=== PATIENT | female | born 1965 | race Caucasian/White ===

== ENCOUNTER 2017-08-02 20:25 | Emergency (ER) | payer SELFPAY ==
--- NOTE | 2017-08-02 20:47 | PDOC ---
Rapid Medical Evaluation Time Seen by Provider: 08/02/17 20:45 Medical Evaluation: 08/02/17 20:45 I have performed a brief in-person evaluation of this patient. The patient presents with a chief complaint of: hematuria since this morning, R sided flank pain, denies vaginal bleeding, denies f/c/n/v/d, LMP last month Pertinent physical exam findings: no CVA tenderness I have ordered the following: UA, UCx, upreg The patient will proceed to the ED for further evaluation. Discharge Disposition - Diagnosis Hematuria - Referrals - Patient Instructions - Post Discharge Activity
[2017-08-02 20:48] VITALS: BP 144/84; PULSE 82; TEMP 98.3; BMI 23.6
--- NOTE | 2017-08-02 20:56 | PDOC ---
History of Present Illness - General Chief Complaint: Urinary Problem Stated Complaint: PAIN Time Seen by Provider: 08/02/17 20:45 History Source: Patient - History of Present Illness Timing/Duration: reports: other (this am) Past History - Past Medical History Allergies/Adverse Reactions: Allergies Allergy/AdvReac Type Severity Reaction Status Date / Time No Known Allergies Allergy Verified 08/02/17 20:48 Home Medications: Ambulatory Orders Nitrofurantoin Monohyd/M-Cryst [Macrobid -] 100 mg PO BID #14 capsule 08/02/17 - Suicide/Smoking/Psychosocial Hx Smoking History: Never smoked Have you smoked in the past 12 months: No Information on smoking cessation initiated: No Hx Alcohol Use: No Drug/Substance Use Hx: No Review of Systems - Review of Systems Constitutional: No: Chills, Fever, Unexplained wgt Loss ABD/GI: No: Nausea, Vomiting, Abdominal cramping : Yes: Hematuria. No: Burning, Dysuria, Discharge, Frequency, Flank Pain Musculoskeletal: No: Back Pain *Physical Exam - Vital Signs Last Vital Signs Temp Pulse Resp BP Pulse Ox 98.3 F 82 16 144/84 100 08/02/17 20:46 08/02/17 20:46 08/02/17 20:46 08/02/17 20:46 08/02/17 20:46 - Physical Exam General Appearance: Yes: Appropriately Dressed. No: Apparent Distress HEENT: positive: Normal Voice Neck: positive: Supple Respiratory/Chest: negative: Respiratory Distress Gastrointestinal/Abdominal: positive: Soft. negative: Tender Musculoskeletal: negative: CVA Tenderness Integumentary: positive: Dry, Warm Neurologic: positive: Fully Oriented, Alert, Normal Mood/Affect Medical Decision Making - Medical Decision Making 08/02/17 21:34 52-year-old female, no significant history, here with sudden onset hematuria w/ possible dysuria this a.m. Patient states she's had multiple episodes of blood in her urine since this morning. No frequency, flank pain, nausea, vomiting, fever or chills. No history of kidney stones. No history of similar episode and not on blood thinners. No unexplained weight loss. No tob hx See exam Hematuria w/ ?dysuria Stable and well eula w/ unremarkable exam No flank pain/n/v to suggest stone, pyelo, no tob use -ua/cx pening 08/02/17 22:27 Bld, prot and 32 wbc on ua, ucx sent. No flank pain, nausea or vomiting, so vwill not scan at this time. Will treat for possible infection, but given significant gross hematuria without a slam dunk UTI on UA, will refer to PMD for further evaluation. Reasons to return discussed with patient *DC/Admit/Observation/Transfer Diagnosis at time of Disposition: Hematuria Qualifiers: Hematuria type: gross Qualified Code(s): R31.0 - Gross hematuria - Discharge Dispostion Disposition: HOME Condition at time of disposition: Good - Prescriptions Prescriptions: Nitrofurantoin Monohyd/M-Cryst [Macrobid -] 100 mg PO BID #14 capsule - Referrals Referrals: ON STAFF,NOT [Primary Care Provider] - - Patient Instructions Printed Discharge Instructions: DI for Hematuria Additional Instructions: You were treated for possible UTI. Take medications as prescribed. If you develop side pain, nausea, vomiting, fever or chills, return to ER immediately. You will need to follow-up with your PMD next week - Post Discharge Activity
[2017-08-02 21:36] LABS: URINE APPEARANCE CLOUDY; URINE BILIRUBIN NEGATIVE (<2.0 mg/dL); URINE BLOOD 3+ (NEGATIVE); URINE COLOR YELLOW; URINE GLUCOSE (UA) NEGATIVE (NEGATIVE); URINE KETONE NEGATIVE (NEGATIVE); URINE LEUK ESTERASE NEGATIVE (NEGATIVE); URINE NITRITE NEGATIVE (NEGATIVE); URINE UROBILINOGEN NEGATIVE mg/dL (0.2-1.0)
[2017-08-02 22:12] LABS: URINE PROTEIN 2+ (NEGATIVE)
[2017-08-02 22:15] LABS: URINE MUCUS RARE
== END 2017-08-02 22:30 | disposition home or self-care (01) ==
LOC: JERFT 20:25
DX: R31.0 Gross hematuria (principal)
CPT/HCPCS: 81003; 81015; 84703; 87086; 99281-25

== ENCOUNTER 2018-02-17 16:03 | Emergency (ER) | payer OTHER ==
--- NOTE | 2018-02-17 16:22 | PDOC ---
History of Present Illness - General Stated Complaint: VOMITING/NAUSEA Time Seen by Provider: 02/17/18 16:21 - History of Present Illness Initial Comments: 53yo F with no significant pmh presenting with 01/31 headache that started last night. Patient reports that started maximal on onset, keeping her from sleeping. She also reports nausea and has had about 20 episodes of NBNB vomiting. Patient endorses abdominal pain that started after vomiting. She has had poor po intake and has been feeling weak. This headache is more severe than those she has had in the past. Denies focal neurologic deficits, weakness on one side of the body, numbness, or heart palpitations. No fever, chills, chest pain, or shortness of breath. Past History - Past Medical History Allergies/Adverse Reactions: Allergies Allergy/AdvReac Type Severity Reaction Status Date / Time No Known Allergies Allergy Verified 02/17/18 16:21 Home Medications: Ambulatory Orders Nitrofurantoin Monohyd/M-Cryst [Macrobid -] 100 mg PO BID #14 capsule 08/02/17 Acetaminophen/Caffeine/Butalb [Fioricet -] 1 tab PO Q4H #7 tablet MDD 5 Butalb/Acetaminophen/Caffeine [Fioricet 50-300-40 mg Capsule] 1 each PO Q4H PRN #7 capsule 02/17/18 - Suicide/Smoking/Psychosocial Hx Smoking History: Never smoked Have you smoked in the past 12 months: No Hx Alcohol Use: No Drug/Substance Use Hx: No Review of Systems - Review of Systems Comments:: Constitutional: no fever, no chills HEENT: no throat pain, no dysphagia Cardiovascular: no chest pain, no palpitations Respiratory: no cough, no shortness of breath Gastrointestinal: +abdominal pain, +nausea, +vomiting, no diarrhea, no constipation Genitourinary: no dysuria, no frequency Musculoskeletal: no myalgia, no arthralgia Skin: no rash, no itching Neurologic: +headache, no dizziness *Physical Exam - Physical Exam Comments: General: Awake, alert, and fully oriented, in no acute distress Head: no signs of trauma Eyes: EOMI, sclera anicteric ENT: Moist mucus membranes Neck: Normal ROM, supple Lungs: Lungs clear, Normal breath sounds Cardio: Regular rhythm, S1 and S2 present Abdomen: Tender to palpation diffusely, most focal to epigastrium. Soft, non- distended. No guarding, no rebound, no masses Extremities: Normal range of motion, Distal pulses present SKIN: Warm, Dry, normal turgor Neurologic: Cranial nerves II through XII grossly intact. Normal speech, sensation, strength, coordination, and gait. ED Treatment Course - LABORATORY CBC & Chemistry Diagram: 02/17/18 17:15 02/17/18 17:15 Medical Decision Making - Medical Decision Making 53yo F with no significant pmh presenting with 01/31 headache that started last night. -DDX includes but not limited to migraine, SAH, CVA, brain bleed, brain mass -CT head negative for acute pathology -Labs: no leukocytosis or anemia, UA/UPreg negative -Reglan: patient reports alleviation of headache, now 08/01 -Discharged with return precautions. Patient amenable to plan 02/17/18 18:37 *DC/Admit/Observation/Transfer Diagnosis at time of Disposition: Headache - Discharge Dispostion Disposition: HOME Condition at time of disposition: Improved - Prescriptions Prescriptions: Acetaminophen/Caffeine/Butalb [Fioricet -] 1 tab PO Q4H #7 tablet MDD 5 Butalb/Acetaminophen/Caffeine [Fioricet 50-300-40 mg Capsule] 1 each PO Q4H PRN #7 capsule PRN Reason: Headache - Referrals Referrals: Killian Nelson [Primary Care Provider] - - Patient Instructions Printed Discharge Instructions: DI for Headache Additional Instructions: You came to the ED for a headache. CT imaging of your head did not show acute pathology. Prescription sent to your pharmacy. Take 1-2 tablets every 4 hours as needed for headache. You can also take [id number] excedrin, tylenol, or motrin for your headache. Follow the instructions on the medication bottle. Follow-up with you primary care physician in 5-7 days to discuss this ED visit and to further evaluate your headache. Your care is not complete until you do so. Call and make an appointment. Medical attention is required if: you experience persistent symptoms, severe headache, have a seizure, or have focal numbness or weakness. If you think you are having an emergency, call for emergency medical services or present to the emergency department right away Print Language: TELUGU - Post Discharge Activity
[2018-02-17 16:28] VITALS: BMI 20.9
--- NOTE | 2018-02-17 17:05 | PDOC ---
Attending Attestation - Resident Resident Name: MariiaDahlia - ED Attending Attestation I have performed the following: I have examined & evaluated the patient, The case was reviewed & discussed with the resident, I agree w/resident's findings & plan, Exceptions are as noted - HPI HPI: 02/17/18 17:34 Ms Helms is a 53 yo F who is otherwise healthy She presents to the ER with a complaint of headache She was at a family reunion yesterday and went to sleep at about 10 pm Some time after this, she noted a diffuse headache which was severe Pt has some difficulty clearly explaining to me what the onset of the headache was like She described to her son (who is bedside) a gradual onset of a headache No neck pain No fevers She has not been able to get comfortable, she could not sleep all night last night She has been vomiting repeatedly She continues to be nauseous She also now has abdominal pain No prior episodes like this - Physicial Exam PE: 02/17/18 17:36 GENERAL: The patient is in no acute distress, she is weak appearing. HEAD: Normal with no signs of trauma. EYES: PERRLA, EOMI, sclera anicteric, conjunctiva clear, photophobia. ENT: Ears normal, nares patent, oropharynx clear without exudates. Moist mucous membranes. NECK: Normal range of motion, supple without nuchal rigidity LUNGS: Breath sounds equal, clear to auscultation bilaterally. HEART:Regular rate and rhythm, normal S1 and S2 without murmur, rub or gallop. ABDOMEN: Soft, diffusely tender to palpation EXTREMITIES: Normal range of motion NEUROLOGICAL: Cranial nerves II through XII grossly intact. Normal speech. No focal neurological deficits. MUSCULOSKELETAL: Back non-tender to palpation, no CVA tenderness SKIN: Warm, Dry, normal turgor, no rashes or lesions noted. - Medical Decision Making 02/17/18 17:37 Pt presents to the ER with a complaint of severe headache: Unlikely meningitis given no fever, no changes in mental status Possibly tension headache Possibly migraine Possibly SAH Will do: Labs CT IV Tylenol, Reglan, Benadryl Will re assess Pt may require LP
[2018-02-17] MEDS ORDERED: METOCLOPRAMIDE HCL INJECTION 10 MG/2 ML VIAL IVPUSH ONE (17:14)
[2018-02-17] MEDS ORDERED: SODIUM CHLORIDE 1,000 ML IV STA (17:14)
[2018-02-17] MEDS ORDERED: METOCLOPRAMIDE HCL INJECTION 10 MG/2 ML VIAL ONE (17:24)
[2018-02-17 17:28] LABS: URINE APPEARANCE CLOUDY; URINE BILIRUBIN NEGATIVE (<2.0 mg/dL); URINE COLOR YELLOW; URINE GLUCOSE (UA) NEGATIVE (NEGATIVE); URINE KETONE NEGATIVE (NEGATIVE); URINE LEUK ESTERASE NEGATIVE (NEGATIVE); URINE NITRITE NEGATIVE (NEGATIVE); URINE PROTEIN NEGATIVE (NEGATIVE); URINE UROBILINOGEN NEGATIVE mg/dL (0.2-1.0)
[2018-02-17 17:30] LABS: HCG,QUALITATIVE URINE Negative
[2018-02-17] MEDS ORDERED: ACETAMINOPHEN 1000 MG/100 ML VIAL (NON FORMULARY) IVPB ONE (17:33)
[2018-02-17 17:59] LABS: BASO % 0.6 % (0-2.0); HEMATOCRIT 39.3 % (32.4-45.2); HEMOGLOBIN 12.5 GM/dL (10.7-15.3); LYMPH % 7.5 % (8-40); MCH 25.2 pg (25.7-33.7); MCHC 31.7 g/dl (32.0-36.0); MEAN CELL VOLUME 79.5 fl (80-96); MEAN PLT VOLUME 8.7 fl (7.5-11.1); MONO % 1.7 % (3.8-10.2); NEUT % 90.2 % (42.8-82.8); PLATELET COUNT 182 K/MM3 (134-434); RBC 4.94 M/mm3 (3.60-5.2); RDW 15.4 % (11.6-15.6); WHITE BLOOD COUNT 9.9 K/mm3 (4.0-10.0)
[2018-02-17 18:18] LABS: ALBUMIN 3.6 g/dl (3.4-5.0); ALK PHOS 97 U/L (45-117); ANION GAP 8 MMOL/L (8-16); BILIRUBIN,TOTAL 0.6 mg/dL (0.2-1); BLOOD UREA NITROGEN 8 mg/dL (7-18); CALCIUM 8.8 mg/dL (8.5-10.1); CHLORIDE 110 mmol/L (98-107); CO2 25 mmol/L (21-32); CREATININE 0.6 mg/dL (0.55-1.3); GLUCOSE,RANDOM 97 mg/dL (74-106); POTASSIUM 3.9 mmol/L (3.5-5.1); SGOT/AST 20 U/L (15-37); SGPT/ALT 21 U/L (13-61); SODIUM 143 mmol/L (136-145); TOT PROT 7.4 g/dl (6.4-8.2)
[2018-02-17] MEDS ORDERED: ACETAMINOPHEN INJECTION 100 ML IVPB ONE (18:22)
[2018-02-17 18:47] VITALS: BP 118/74; PULSE 96; TEMP 99.1
== END 2018-02-17 21:10 | disposition home or self-care (01) ==
LOC: SUPCPDRO 16:03 → JER 16:03
PROC: 3E0337Z Introduction of Electrolytic and Water Balance Substance into Peripheral Vein, Percutaneous Approach (ICD-10-PCS; principal; 2018-02-17)
PROC: 3E033NZ Introduction of Analgesics, Hypnotics, Sedatives into Peripheral Vein, Percutaneous Approach (ICD-10-PCS; 2018-02-17)
PROC: 3E033GC Introduction of Other Therapeutic Substance into Peripheral Vein, Percutaneous Approach (ICD-10-PCS; 2018-02-17)
PROC: 3E033GC Introduction of Other Therapeutic Substance into Peripheral Vein, Percutaneous Approach (ICD-10-PCS; 2018-02-17)
DX: R51 Headache (principal)
CPT/HCPCS: 36415; 70450-TC; 80053; 81003; 84703; 85025; 87086; 96361; 96374; 96375; 99283-25; J0131; J7030